=== PATIENT | female | born 1980 | race Caucasian/White ===

== ENCOUNTER → 2020-08-20 17:58 | Outpatient (CLI) | payer MEDICAID, SELFPAY ==
[2020-08-20 18:17] LABS: Basophils # 0.1 K/mm3 (0-0.2); Basophils % 0.5 % (0.1-2.0); Eosinophils # 0.2 K/mm3 (0.0-0.4); Eosinophils % 1.5 % (0.1-12.0); Hematocrit 41.9 % (37.0-47.0); Lymphocytes # 2.4 K/mm3 (0.7-4.5); Lymphocytes % 21.6 % (10-50); Mean Corpuscular HGB Conc 33.4 g/dL (31.8-35.4); Mean Corpuscular Hemoglobin 28.8 pg (27.0-31.2); Mean Corpuscular Volume 86.3 fl (81-99); Mean Platelet Volume 9.7 fl (7.4-10.4); Monocytes # 0.4 K/mm3 (0.1-1.0); Neutrophils % 72.4 % (37.0-80.0); Platelet Count 333 K/mm3 (142-424); Red Blood Count 4.85 M/mm3 (4.20-5.40); Red Cell Distribution Width 14.2 % (11.5-17.5); White Blood Count 11.1 K/mm3 (4.8-10.8)
[2020-08-20 18:20] LABS: Chloride 107 mmol/L (98-107); Sodium 139 mmol/L (136-145)
[2020-08-20 18:22] LABS: Blood Urea Nitrogen 8 mg/dl (7-17); Estimated Glomerular Filt Rate 110 ml/min (>60); GFR (African American) 133 ML/MIN (>60)
[2020-08-20 18:23] LABS: Alanine Aminotransferase 68 U/L (12-78); Albumin Level 3.7 g/dl (3.5-5.0); Albumin/Globulin Ratio 1.2 (1.1-1.8); Alkaline Phosphatase 134 U/L (38-126); Aspartate Amino Transferase 65 U/L (14-36); Bilirubin,Total 0.4 mg/dl (0.2-1.3); Calcium 9.5 mg/dl (8.4-10.2); Carbon Dioxide 21 mmol/L (22.0-30.0); Glucose 104 mg/dl (74-100); Total Protein,Serum 6.7 g/dl (6.3-8.2)
[2020-08-20 18:28] LABS: C-Reactive Protein 32.1 mg/L (0-4)
[2020-08-20 18:40] LABS: Free T4 (Free Thyroxine) 1.87 ng/dl (0.78-2.19)
[2020-08-20 18:54] LABS: Thyroid Stimulating Hormone 2.14 uIU/mL (0.465-4.68)
[2020-08-20 19:20] LABS: Erythrocyte Sedimentation Rate 27 mm/hr (0-20)
[2020-08-22 14:14] LABS: Anti-Centromere B Antibodies <0.2 AI (0.0-0.9); Anti-Jo-1 <0.2 AI (0.0-0.9); Anti-Smith Antibody <0.2 AI (0.0-0.9); Antichromatin Antibodies <0.2 AI (0.0-0.9); Antiscleroderma-70 Antibodies <0.2 AI (0.0-0.9); RNP Antibodies <0.2 AI (0.0-0.9); Sjogren's Anti-SS-A <0.2 AI (0.0-0.9); Sjogren's Anti-SS-B <0.2 AI (0.0-0.9)
[2020-08-22 14:58] LABS: RA Latex Turbid. <10.0 IU/mL (0.0-13.9)
[2020-08-22 14:59] LABS: Anti-DNA (DS) Ab Qn 1 IU/mL (0-9)
[2020-08-23 09:14] LABS: Anti-Cyclic Citrullinated Pept 7 units (0-19)
== END ==
PROVIDERS: Visit Provider Emergency Medicine
DX: M05.20 Rheumatoid vasculitis with rheumatoid arthritis of unspecified site (principal)
CPT/HCPCS: 80053; 84439; 84443; 85025; 85651; 86140; 86200; 86225; 86235; 86431

== ENCOUNTER → 2022-08-24 09:19 | Outpatient (CLI) | payer MEDICAID, SELFPAY ==
--- NOTE | 2022-08-24 09:21 | CA_ITS ---
APPROVED REPORT EXAM: Comprehensive 2D, Doppler, and color-flow Echocardiogram Media Aid: Kylie Yepez, QUANG, RVS Ht: 5 ft 10 in Wt: 266lbs BSA: 2.36 BP: 118/86 mmHg Indications: Smoker, Obesity, [place] 2D Dimensions IVSd 1.29 cm LVEF (Visual) 63.50 % PWd 1.03 cm LA Volume 48.90 mL LVDd 5.56 cm LA Volume Index 20.70 mL/m2 (M/F) 16-34 LVDs 3.62 cm Aortic Root 3.38 cm Left Atrium 3.47 cm LVOT 2.18 cm (M/F) 1.5-2.5 M-Mode Dimensions LA Diam 3.45 cm (1.9-4.0) Ao Diam 3.08 cm (2.0-3.7) EPSs 0.57 cm TAPSE 1.98 (<1.7) LV Diastology E Decel Time 213.00 (160-240 msec) E/A Ratio 1.81 MED E' 7.40 (< 7 cm/sec) MED A' 9.60 cm/s E'/MED E' Ratio 14.70 (>14) LAT E' 8.00 (<10 cm/sec) LAT A' 9.00 cm/s E/LAT E' Ratio 13.60 (>14) Aortic Valve LVOT Max 146.00 (70-110 cm/s) LVOT VTI 30.07 cm AoV Peak Olu. 167.00 (50-130 cm/s) AO Peak GR. 11.20 mmHg AO Mean GR. 5.20 (<5 mmHg) AO VTI 34.43 (18-25 cm) BRITT (VTI) 3.26 (2.5-4.5 cm2) Mitral Valve MV A Velocity 60.00 (40-130 cm/s) E/A Ratio 1.81 MV Decel. Time 213.00 (160-240 ms) MV Mean Gr. 2.00 (<2mmHg) MV PHT 63.00 ms Pulmonary Valve PV Peak Velocity 103.00 (50-150 cm/s) Tricuspid Valve TR P. Velocity 155.00 cm/s Left Ventricle Atrium normal size left ventricle is normal size, there is no concentric left ventricular hypertrophy, estimated ejection fraction of 55% with no regional wall motion abnormality, diastolic parameters are within normal range. Right Ventricle Right atrium and right ventricle are normal size and contractility. Aortic Valve Aortic valve is grossly normal there is no aortic stenosis aortic insufficiency. Mitral Valve Mitral valve is grossly normal, there is trace mitral regurgitation. Tricuspid Valve Tricuspid valve is grossly normal, there is trace tricuspid regurgitation, tricuspid regurgitation jet velocity is inadequate for calculation of the right ventricular systolic pressure. Pulmonic Valve Pulmonic valve is poorly visualized. Great Vessels Aortic root is normal size. Inferior vena cava is normal size with normal inspiratory collapse. Pericardium No significant pericardial effusion noted. Conclusion 1. Normal left ventricular size preserved left ventricular systolic function, estimated ejection fraction 55% with no regional wall motion abnormality, diastolic parameters are within normal range. 2. Trace mitral and tricuspid regurgitation. 3. No significant pericardial effusion noted. 4. Inferior vena cava is normal size with normal inspiratory collapse. Electronically signed by : Marcus Huang MD 08/24/2022 12:33:27
== END ==
PROVIDERS: PCP Family Medicine; Visit Provider Family Medicine
DX: R06.09 Other forms of dyspnea (principal); R60.9 Edema, unspecified
CPT/HCPCS: 93306

== ENCOUNTER → 2022-09-24 09:36 | Outpatient (CLI) | payer MEDICAID, SELFPAY | PROVIDERS: PCP Family Medicine; Visit Provider Internal Medicine Cardiovascular Disease | DX: R06.09 Other forms of dyspnea (principal) | CPT/HCPCS: 94060; 94726; 94729 ==